=== PATIENT | male | born 1985 ===

== ENCOUNTER 2018-06-11 03:37 | Emergency (ER) | payer SELFPAY ==
--- NOTE | 2018-06-11 10:04 | Emergency Department Report ---
ED General Adult HPI - General Chief complaint: Psych Stated complaint: DRUG WITHDRWAL Time Seen by Provider: 06/11/18 10:02 Source: patient Mode of arrival: Ambulatory Limitations: No Limitations - History of Present Illness Initial comments: 32-year-old male with a history of heroin abuse presents stating that he is withdrawing from heroin. Patient states his last use of heroin was 10 AM. Patient states that he feels like killing himself. Patient states that he has been vomiting. Patient denies hematemesis. Patient complains of abdominal pain. Patient complains of diaphoresis as well. Patient states he's had no prior inpatient treatment for heroin abuse. Patient denies any IV drug use. Patient states that he has no access to firearms. Patient denies any homicidal ideation or auditory hallucinations. Patient denies any fever. Patient states that he feels like he has no reason to go on. - Related Data Allergies Allergy/AdvReac Type Severity Reaction Status Date / Time No Known Allergies Allergy Unverified 06/11/18 04:15 ED Review of Systems ROS: Stated complaint: DRUG WITHDRWAL Other details as noted in HPI Constitutional: denies: chills, fever Eyes: denies: eye pain, eye discharge, vision change ENT: denies: ear pain, throat pain Respiratory: denies: cough, shortness of breath, wheezing Cardiovascular: denies: chest pain, palpitations Endocrine: excessive sweating Gastrointestinal: abdominal pain, nausea, vomiting. denies: diarrhea Genitourinary: denies: urgency, dysuria Musculoskeletal: denies: back pain, joint swelling, arthralgia Skin: denies: rash, lesions Neurological: denies: headache, weakness, paresthesias Psychiatric: depression, suicidal thoughts. denies: anxiety Hematological/Lymphatic: denies: easy bleeding, easy bruising ED Physical Exam - General Limitations: No Limitations General appearance: alert, other (uncomfortable; dehdyrated) - Head Head exam: Present: atraumatic, normocephalic - Eye Eye exam: Present: normal appearance - ENT ENT exam: Present: mucous membranes dry - Neck Neck exam: Present: normal inspection - Respiratory Respiratory exam: Present: normal lung sounds bilaterally. Absent: respiratory distress - Cardiovascular Cardiovascular Exam: Present: regular rate, normal rhythm. Absent: systolic murmur, diastolic murmur, rubs, gallop - GI/Abdominal GI/Abdominal exam: Present: soft, normal bowel sounds - Rectal Rectal exam: Present: deferred - Extremities Exam Extremities exam: Present: normal inspection - Back Exam Back exam: Present: normal inspection - Neurological Exam Neurological exam: Present: alert, oriented X3 - Psychiatric Psychiatric exam: Present: depressed - Skin Skin exam: Present: warm, dry, intact, normal color. Absent: rash ED Course Vital Signs 06/11/18 06/11/18 06/11/18 04:10 08:07 10:30 Temperature 98.7 F 98.6 F Pulse Rate 74 78 59 L Respiratory 18 20 20 Rate Blood Pressure 128/80 Blood Pressure 137/84 122/72 [Left] O2 Sat by Pulse 99 100 100 Oximetry ED Medical Decision Making - Lab Data Result diagrams: 06/11/18 10:21 06/11/18 10:21 - Medical Decision Making Patient is medically clear. Patient seen by [facility]. Patient placed on a 1013. Patient awaiting placement at a facility at this current time. - Differential Diagnosis Anemia; electrolyte abnormality; Polysubstance Abuse; Withdrawal Critical care attestation.: If time is entered above; I have spent that time in minutes in the direct care of this critically ill patient, excluding procedure time. ED Disposition Clinical Impression: Cocaine abuse, Opiate abuse, continuous, Suicidal ideation Disposition: [id number]/TX-[id number] PSY HOSP/PSY UNIT Is pt being admited?: No Does the pt Need Aspirin: No Condition: Stable Referrals: PRIMARY CARE, [Primary Care Provider] - 3-5 Days Time of Disposition: 13:45
[2018-06-11] MEDS ORDERED: NACL 0.9% 1000 ML 1,000 ML IV ONE (10:14)
[2018-06-11] MEDS ORDERED: ZOFRAN IV ONE (10:17)
[2018-06-11 10:32] LABS: Basophils % (Auto) 0.3 % (0.0-1.8); Eosinophils % (Auto) 0.5 % (0.0-4.3); Hematocrit 38.1 % (35.5-45.6); Hemoglobin 13.2 gm/dl (11.8-15.2); Lymphocytes # (Auto) 0.9 K/mm3 (1.2-5.4); Lymphocytes % (Auto) 11.2 % (13.4-35.0); Mean Corpuscular HGB Conc 35 % (32-34); Mean Corpuscular Hemoglobin 30 pg (28-32); Mean Corpuscular Volume 88 fl (84-94); Monocytes # (Auto) 0.4 K/mm3 (0.0-0.8); Monocytes % (Auto) 5.6 % (0.0-7.3); Platelet Count 280 K/mm3 (140-440); Red Blood Count 4.34 M/mm3 (3.65-5.03); Red Cell Distribution Width 12.3 % (13.2-15.2)
[2018-06-11 10:54] LABS: Alanine Aminotransferase 12 units/L (7-56); Albumin 4.3 g/dL (3.9-5); BUN/Creatinine Ratio 18; Blood Urea Nitrogen 16 mg/dL (9-20); Calcium 9.4 mg/dL (8.4-10.2); Hemolysis Index 2
[2018-06-11 11:20] LABS: Amphetamine Screen,Urine PRESUMPTIVE NEGATIVE; Benzodiazepines Screen,Urine PRESUMPTIVE NEGATIVE; Cannabinoid Screen,Urine PRESUMPTIVE NEGATIVE; Methadone Screen,Urine PRESUMPTIVE NEGATIVE
[2018-06-11 11:38] LABS: Cocaine Screen,Urine PRESUMPTIVE POSITIVE; Opiate Screen,Urine PRESUMPTIVE POSITIVE
[2018-06-11] MEDS ORDERED: TYLENOL PO PRN (14:37)
[2018-06-11] MEDS ORDERED: ATIVAN IV STA (15:58)
[2018-06-12] MEDS ORDERED: ZOFRAN PO PRN (09:03)
[2018-06-12] MEDS: ZOLOFT PO SCH (10:30)
[2018-06-12] MEDS: CATAPRES PO SCH ×2 (10:30→22:21)
[2018-06-12] MEDS: ROBAXIN PO SCH ×2 (11:10→22:35)
[2018-06-12] MEDS ORDERED: ATIVAN IM ONE ×2 (12:15→21:32)
[2018-06-12] MEDS ORDERED: ATIVAN ONE (12:34)
--- NOTE | 2018-06-12 14:24 | Consultation ---
History of Present Illness - Reason for Consult Consult date: 06/12/18 Reason for consult: Mental Health Evaluation Requesting physician: JASE ZAMORA - Chief Complaint Chief complaint: "I hate the way I feel" - History of Present Psychiatric Illness 32-year-old male with a history of heroin abuse presents to the ER for SI's and heroin withdrawals. Today the patient is calm, but anxious during the assessment. He stated that he is suicidal because he cannot stop using heroin. He does not have a suicidal plan when asked. He stated that he last use heroin a day ago. He stated that he started taking percocet pills (recreational) a couple yrs ago and transitioned to heroin when he could not get a prescription for a narcotic. He stated that his life is in "screwed up" and don't have a reason to live. He rate his depression 8/10, with 10 being the worse. He denies a previous suicide attempt. He acknowledged N/V and body aches. He denies HI's and AVH's. He denies a poor appetite and erratic sleep. He denies recreational drug use, but positive for cocaine. He denies alcohol consumption (etoh). Medications and Allergies Allergies Allergy/AdvReac Type Severity Reaction Status Date / Time No Known Allergies Allergy Unverified 06/11/18 04:15 Home Medications Medication Instructions Recorded Confirmed Last Taken Type No Known Home Medications [No 06/12/18 06/12/18 Unknown History Reported Home Medications] Active Meds: Active Medications Acetaminophen (Tylenol) 650 mg PO Q4H PRN PRN Reason: Pain, Moderate (4-6) Last Admin: 06/11/18 14:40 Dose: 650 mg Clonidine HCl (Catapres) 0.1 mg PO BID [facility]YCE Last Admin: 06/12/18 10:30 Dose: 0.1 mg Methocarbamol (Robaxin) 500 mg PO BID [facility] Ondansetron HCl (Zofran) 4 mg PO Q6H PRN PRN Reason: Nausea And Vomiting Sertraline HCl (Zoloft) 25 mg PO DAILY BRYCE Last Admin: 06/12/18 10:30 Dose: 25 mg Past psychiatric history - Past Medical History Past Medical History: No medical history Past Surgical History: No surgical history - past Psychiatric treatment and history psychiatric treatment history: Hx of Opioid abuse. Denies a fam psy hx. - Social History Social history: other (Homeless) Mental Status Exam - Vital signs Last Vital Signs Temp 98.6 F 06/11/18 10:30 Pulse 59 L 06/11/18 10:30 Resp 16 06/12/18 10:42 BP 123/67 06/11/18 16:15 Pulse Ox 99 06/12/18 10:42 - Exam Narrative exam: MSE: Appearance: calm, cooperative Behavior: poor eye contact Speech: regular rate and tone Mood: anxious Affect: congruent to mood Thought Process: circumstantial Thought Content: denies HI's and AVH's Motor Activity: ambulatory Cognition: A/O x 3 Insight: variable Judgment: variable Results Result Diagrams: 06/11/18 10:21 06/11/18 10:21 All other labs normal. Assessment and Plan Assessment and plan: Impression: MDD, Severe. Opioid Use DO. Substance Use DO (cocaine). Today the patient is calm, but anxious during the assessment. The patient is experiencing opioid withdrawals. DDx: R/O Substance Induced Mood DO Recommendation/Plan: Continue 1013 with placement to inpatient psy services. Start Robaxin 500 mg PO BID withdrawals symptoms (body aches), Clonidin 0.1 mg PO BID for anxiety, Zofran 4 mg PO Q6hrs PRN for N/V, and Zoloft 25 mg PO for depression. Discussed possible suicidality/medication induced pedro with the patient reference Zoloft.
[2018-06-12] MEDS ORDERED: REMERON PO SCH (22:00)
[2018-06-13] MEDS: CATAPRES PO SCH ×2 (10:00→22:16)
[2018-06-13] MEDS: ROBAXIN PO SCH ×2 (10:10→22:20)
[2018-06-13] MEDS: ZOLOFT PO SCH (10:10)
--- NOTE | 2018-06-13 14:35 | Progress Note ---
Subjective - Reason for Consult Consult date: 06/13/18 Reason for consult: Psychiatry Follow-up - Chief Complaint Chief complaint: "I want to get better" 32-year-old male with a history of heroin abuse presents to the ER for SI's and heroin withdrawals. Today the patient is calm and cooperative during the assessment. He stated that he feel a "little better," but cannot confirm or deny SI's when asked. He stated that he is concerned about the next chapter of his life. He denies HI's and AVH's. He denies any side effects of his medications. Mental Status Exam - Vital signs Last Vital Signs Temp 99 F 06/12/18 19:33 Pulse 55 L 06/12/18 22:21 Resp 12 06/12/18 19:33 BP 130/69 06/12/18 22:21 Pulse Ox 98 06/12/18 19:33 - Exam Narrative exam: MSE: Appearance: calm, cooperative Behavior: poor eye contact Speech: regular rate and tone Mood: "okay" Affect: congruent to mood Thought Process: circumstantial Thought Content: denies HI's and AVH's Motor Activity: ambulatory Cognition: A/O x 3 Insight: variable Judgment: variable Assessment and Plan Impression: MDD, Severe. Opioid Use DO. Substance Use DO (cocaine). Today the patient is calm and cooperative during the assessment. No acute withdrawals noted. DDx: R/O Substance Induced Mood DO Recommendation/Plan: Continue 1013 with placement to inpatient psy services. Robaxin 500 mg PO BID withdrawals symptoms (body aches), Clonidin 0.1 mg PO BID for anxiety, Zofran 4 mg PO Q6hrs PRN for N/V, and Zoloft 25 mg PO for depression. Discussed possible suicidality/medication induced pedro with the patient reference Zoloft.
[2018-06-13] MEDS ORDERED: ATIVAN PO ONE (16:05)
[2018-06-14] MEDS ORDERED: ZOFRAN ODT PO PRN (04:00)
[2018-06-14] MEDS: ZOLOFT PO SCH (11:00)
[2018-06-14] MEDS: ROBAXIN PO SCH (11:00)
[2018-06-14] MEDS: CATAPRES PO SCH (15:26)
[2018-06-14 15:28] VITALS: BP 108/66
[2018-06-14] MEDS ORDERED: ALUM-MAG HYDROX-SIMETH 200-200-20MG/5ML PO PRN (18:40)
[2018-06-14] MEDS ORDERED: IMODIUM PO ONE (18:41)
--- NOTE | 2018-06-14 18:54 | Progress Note ---
Subjective - Reason for Consult Consult date: 06/14/18 Reason for consult: follow up - Chief Complaint Chief complaint: "I have aches and pain." 32-year-old male with a history of heroin abuse presents to the ER for SI and heroin withdrawal. Today the patient is calm and cooperative during the assessment. He talked about how his use had escalated to the point of using heroin. He states he uses when things are going well and does not know why. He is open to treatment. He is unsure of whether or not he should go to rehab in [place] or [place]. His parents are flying from [place] to [place] in 4 days. He reports anxiety and was tearful when talking about his experiences. He denies HI 's and AVH's. He denies any side effects of his medications. He complains of diarrhea. Narrative exam: MSE: Appearance: calm, cooperative Behavior: fair eye contact Speech: regular rate and tone Mood: anxious Affect: congruent to mood/tearful Thought Process: circumstantial Thought Content: denies HI's and AVH's Motor Activity: ambulatory Cognition: A/O x 3 Insight: variable Judgment: variable Assessment and Plan Impression: MDD, Severe. Opioid Use DO. Substance Use DO (cocaine). Today the patient is calm and cooperative during the assessment. c/o diarrhea, body aches , hot/cold flashes DDx: R/O Substance Induced Mood DO Recommendation/Plan: Continue 1013 with placement to inpatient psy services. Robaxin 500 mg PO BID withdrawals symptoms (body aches), Clonidine 0.1 mg PO BID for anxiety, Zofran 4 mg PO Q6hrs PRN for N/V, and Zoloft 25 mg PO for depression. recommend imodium 2mg once. Mental Status Exam - Vital signs Last Vital Signs Temp 98.8 F 06/13/18 19:29 Pulse 66 06/14/18 15:26 Resp 14 06/13/18 19:29 BP 108/66 06/14/18 15:26 Pulse Ox 98 06/13/18 19:29
[2018-06-15] MEDS ORDERED: IMODIUM PO PRN (06:00)
== END 2018-06-14 09:20 ==
LOC: ED 03:37 → EEVIPCON 03:37 → ED 06-14 09:20
DX: F32.9 Major depressive disorder, single episode, unspecified (principal); F14.10 Cocaine abuse, uncomplicated; F11.10 Opioid abuse, uncomplicated; Z59.0 Homelessness
CPT/HCPCS: 36415; 80053; 80307; 85025; 99285; G0480; J2060; J2405; J7030; 80320; Q0162